=== PATIENT | male | born 1960 | race Caucasian/White ===

== ENCOUNTER → 2018-09-29 | Outpatient (CLI) | payer BC ==
--- NOTE | 2018-09-29 13:36 | Diagnostic Imaging Report ---
EXAM: Renal Ultrasound INDICATION: ^[id number] ^[id number] ^CHRONIC KIDNEY DZ COMPARISON: None TECHNIQUE: Transverse and longitudinal images of the kidneys and bladder were obtained. FINDINGS: Right Kidney: Size: 13.1 cm, right renal cortex 1.9 cm. Appearance: Normal echogenicity. Collecting system: No hydronephrosis Stones: None Cyst/Mass: None Left Kidney: Size: 12.0 cm, left renal cortex 2.1 cm. Appearance: Normal echogenicity. Collecting system: No hydronephrosis Stones: None Cyst/Mass: None Bladder: No focal lesions. No wall thickening. Prostate: 2.9 x 1.8 x 2.7 (estimated volume 7.4 mL). IMPRESSION: 1. Unremarkable renal ultrasound. Signed by: Dr. Lamine Early M.D. on 09/29/2018 1:33 PM
== END ==
LOC: US 12:08
PROVIDERS: ATTEND Urology
DX: N18.9 Chronic kidney disease, unspecified (principal)
CPT/HCPCS: 76770

== ENCOUNTER 2019-09-09 11:48 | Emergency (ER) | payer BC ==
[~2019-09-09] VITALS: Ht 182.9 cm; Wt 133.8 kg
--- OUTSIDE RECORDS SUMMARY | 2019-09-09 11:51 | XMS REPORT ---
Author Author [facility] Address Unknown Phone Unavailable Care Team Providers Care Olive Brine Tester Name Role Phone BISHNU CLINE Unavailable Unavailable Payers Payer Name Policy Type Policy Number Effective Date Expiration Date Problems This patient has no known problems. Allergies, Adverse Reactions, Alerts Allergy Name Allergy Type Status Severity Reaction(s) Onset Date Inactive Date Treating Clinician Comments No Known Allergies DA Active U 2014-12-07 00:00:00 Medications This patient has no known medications. Results Test Description Test Time Test Comments Text Results Atomic Results Result Comments - XR SHOULDER 1 V RT 2019-07-17 12:06:00 FAX: Noam Garcia I [phone] [place]: St: ADM FAX: Mike Cowrat MD [phone] Name: ASMITA SANTOS [facility]ly [facility] : 1960 Age/S: 59/M [address] [place] [address] Unit #: [id number] Loc: [address] [address] Phys: Mike Cowart MD Acct: [id number] Dis Date: Status: ADM IN PHONE #: [phone] Exam Date: 07/17/2019 1205 FAX #: [phone] Reason: PICC PLACEMENT EXAMS: CPT CODE: [id number] XR SHOULDER 1 V RT [id number] Clinical Indication: PICC placement. Opening talus fracture. Comparison: None available. Impression: Right shoulder, single view. Right upper extremity PICC is in place with catheter tip extending to the superior vena cava. SL: [id number] at 1206 Reported and signed by: Criselda Duval M.D. CC: Noam Gomez MD; Mike Cowart MD Technologist: Rachell Che RT(R) Trnscrd Date/Time/By: 07/17/2019 (8325) : By: [email or web address] Orig Print D/T: S: 07/17/2019 (6919) PAGE 1 Signed Report COMPREHENSIVE METABOLIC PANEL 2019-07-17 02:51:00 SODIUM (test code=NA) 140 mEq/L 134-147 POTASSIUM (test code=K) 4.2 mEq/L 3.4-5.0 CHLORIDE (test code=CL) 107 mEq/L 100-108 CARBON DIOXIDE (test code=CO2) 27 mEq/L 21-33 ANION GAP (test code=GAP) 10 0-20 GLUCOSE (test code=GLU) 93 mg/dL 70-110 BLOOD UREA NITROGEN (test code=BUN) 13 mg/dL 7-18 GLOMERULAR FILTRATION RATE (test code=GFR) 61.8 80-90 Units of measure=ml/min/1.73 m2 CREATININE (test code=CREAT) 1.2 mg/dL 0.6-1.3 TOTAL PROTEIN (test code=PROT) 6.8 g/dL 6.4-8.2 ALBUMIN (test code=ALB) 3.10 g/dL 3.4-5.0 CALCIUM (test code=CA) 9.0 mg/dL 8.0-10.5 BILIRUBIN TOTAL (test code=BILT) 0.5 MG/DL <1.5 SGOT/AST (test code=AST) 26 IUnit/L 15-37 SGPT/ALT (test code=ALT) 50 IUnit/L 15-65 ALKALINE PHOSPHATASE TOTAL (test code=ALKP) 130 IUnit/L 20-125 CBC W/AUTO [id number] 02:33:00* Test Item Value Reference Range Comments WHITE BLOOD CELL (test code=WBC) 7.85 x10 3/uL 4.5-11.0 RED BLOOD CELL (test code=RBC) 4.17 x10 6/uL 4.00-5.60 HEMOGLOBIN (test code=HGB) 12.2 g/dL 12.5-16.9 HEMATOCRIT (test code=HCT) 37.2 % 37.5-50.7 MEAN CELL VOLUME (test code=MCV) 89.2 fL 81.0-99.0 MEAN CELL HGB (test code=MCH) 29.3 pg 27.0-33.0 MEAN CELL HGB CONCETRATION (test code=MCHC) 32.8 g/dL 33.0-37.0 RED CELL DISTRIBUTION WIDTH CV (test code=RDW) 13.5 % 11.5-14.5 RED CELL DISTRIBUTION WIDTH SD (test code=RDW-SD) 44.1 fL 37.0-54.0 PLATELET COUNT (test code=PLT) 461 x10 3/uL 150-400 MEAN PLATELET VOLUME (test code=MPV) 8.9 fL 7.0-9.0 NEUTROPHIL % (test code=NT%) 53.9 % 56.0-77.0 IMMATURE GRANULOCYTE % (test code=IG%) 3.7 % 0.0-2.0 LYMPHOCYTE % (test code=LY%) 25.7 % 14.0-32.0 MONOCYTE % (test code=MO%) 12.0 % 4.8-9.0 EOSINOPHIL % (test code=EO%) 3.9 % 0.3-3.7 BASOPHIL % (test code=BA%) 0.8 % 0.0-2.0 NUCLEATED RBC % (test code=NRBC%) 0.0 % 0-0 NEUTROPHIL # (test code=NT#) 4.23 x10 3/uL 2.0-7.6 IMMATURE GRANULOCYTE # (test code=IG#) 0.29 x10 3/uL 0.00-0.03 LYMPHOCYTE # (test code=LY#) 2.02 x10 3/uL 1.0-3.8 MONOCYTE # (test code=MO#) 0.94 x10 3/uL 0.1-0.8 EOSINOPHIL # (test code=EO#) 0.31 x10 3/uL 0.0-0.2 BASOPHIL # (test code=BA#) 0.06 x10 3/uL 0.0-0.2 NUCLEATED RBC # (test code=NRBC#) 0.00 x10 3/uL 0.0-0.1 MANUAL DIFF REQUIRED (test code=MDIFF) NO COMPREHENSIVE METABOLIC [id number] 08:22:00* Test Item Value Reference Range Comments SODIUM (test code=NA) 138 mEq/L 134-147 POTASSIUM (test code=K) 4.2 mEq/L 3.4-5.0 CHLORIDE (test code=CL) 107 mEq/L 100-108 CARBON DIOXIDE (test code=CO2) 26 mEq/L 21-33 ANION GAP (test code=GAP) 9 0-20 GLUCOSE (test code=GLU) 88 mg/dL 70-110 BLOOD UREA NITROGEN (test code=BUN) 13 mg/dL 7-18 GLOMERULAR FILTRATION RATE (test code=GFR) 61.8 80-90 Units of measure=ml/min/1.73 m2 CREATININE (test code=CREAT) 1.2 mg/dL 0.6-1.3 TOTAL PROTEIN (test code=PROT) 6.2 g/dL 6.4-8.2 ALBUMIN (test code=ALB) 2.80 g/dL 3.4-5.0 CALCIUM (test code=CA) 8.6 mg/dL 8.0-10.5 BILIRUBIN TOTAL (test code=BILT) 0.4 MG/DL <1.5 SGOT/AST (test code=AST) 33 IUnit/L 15-37 SGPT/ALT (test code=ALT) 58 IUnit/L 15-65 ALKALINE PHOSPHATASE TOTAL (test code=ALKP) 143 IUnit/L 20-125 CBC W/AUTO [id number] 07:34:00* Test Item Value Reference Range Comments WHITE BLOOD CELL (test code=WBC) 6.95 x10 3/uL 4.5-11.0 RED BLOOD CELL (test code=RBC) 3.99 x10 6/uL 4.00-5.60 HEMOGLOBIN (test code=HGB) 11.6 g/dL 12.5-16.9 HEMATOCRIT (test code=HCT) 36.0 % 37.5-50.7 MEAN CELL VOLUME (test code=MCV) 90.2 fL 81.0-99.0 MEAN CELL HGB (test code=MCH) 29.1 pg 27.0-33.0 MEAN CELL HGB CONCETRATION (test code=MCHC) 32.2 g/dL 33.0-37.0 RED CELL DISTRIBUTION WIDTH CV (test code=RDW) 13.7 % 11.5-14.5 RED CELL DISTRIBUTION WIDTH SD (test code=RDW-SD) 46.0 fL 37.0-54.0 PLATELET COUNT (test code=PLT) 431 x10 3/uL 150-400 MEAN PLATELET VOLUME (test code=MPV) 9.2 fL 7.0-9.0 NEUTROPHIL % (test code=NT%) 55.2 % 56.0-77.0 IMMATURE GRANULOCYTE % (test code=IG%) 4.6 % 0.0-2.0 LYMPHOCYTE % (test code=LY%) 22.2 % 14.0-32.0 MONOCYTE % (test code=MO%) 12.1 % 4.8-9.0 EOSINOPHIL % (test code=EO%) 4.6 % 0.3-3.7 BASOPHIL % (test code=BA%) 1.3 % 0.0-2.0 NUCLEATED RBC % (test code=NRBC%) 0.0 % 0-0 NEUTROPHIL # (test code=NT#) 3.84 x10 3/uL 2.0-7.6 IMMATURE GRANULOCYTE # (test code=IG#) 0.32 x10 3/uL 0.00-0.03 LYMPHOCYTE # (test code=LY#) 1.54 x10 3/uL 1.0-3.8 MONOCYTE # (test code=MO#) 0.84 x10 3/uL 0.1-0.8 EOSINOPHIL # (test code=EO#) 0.32 x10 3/uL 0.0-0.2 BASOPHIL # (test code=BA#) 0.09 x10 3/uL 0.0-0.2 NUCLEATED RBC # (test code=NRBC#) 0.00 x10 3/uL 0.0-0.1 MANUAL DIFF REQUIRED (test code=MDIFF) NO - XR ANKLE 3 + V [id number] 19:08:00 FAX: Andres Torres DPM [phone] [place]: St: ADM FAX: Noam Garcia I [phone] Name: ASMITA SANTOS [facility] : 1960 Age/S: 59/M [address] [place] [address] Unit #: [id number] Loc: [place], [place] [address] Phys: Andres Templeton DPM Acct: [id number] Dis Date: Status: ADM IN PHONE #: [phone] Exam Date: 07/14/2019 1841 FAX #: [phone] Reason: left talar fracture/post fixation EXAMS: CPT CODE: [id number] XR ANKLE 3 + [place] [id number] Left ankle radiograph July 14, 2019 1833 hours. COMPARISON: July 04, 2019. CLINICAL HISTORY: Status post left talar fracture, post fixation Discussion: 3 views of the left ankle, AP lateral and oblique submitted. External fixation device and surg ical screws present over the tibia, talus and midfoot. Talar fracture is n oted with bahai of anatomic alignment. Extensive soft tissue swellin g and postoperative changes are noted. IMPRESSION: Status post talar fracture with external fixation device and multiple surgical screws present. Electronically Signed by Axel shah 07/14/2019 at 1908 Reported and signed by: Merary Juline M.D. CC: Andres Templeton DPM; Noam Gomez MD Technologist: RT Ayla(Faraz) Naresh rnschau Date/Time/By: 07/14/2019 (1907) : By: Eden Orig Print D/T: S: 07/14/2019 (1910) PAGE 1 Sign ed Report PROTHROMBIN [id number] 16:12:00* Test Item Value Reference Range Comments PROTHROMBIN TIME PATIENT (test code=PTP) 13.7 SECONDS 9.3-12.9 INTERNATIONAL NORMAL RATIO (test code=INR) 1.3 0.8-1.2 TARGET INR BY INDICATION Indication INR1. Prophylaxis of venous thrombosis 2.0 - 3.0 (orthopedic surgery), Prophylaxis of venous thrombosis (other than high-risk surgery), Treatment of Deep Vein Thrombosis/Pulmonary Embolism, Prevention of systemic embolism - Tissue heart valves, Acute Myocardial Infarction (to prevent systemic embolism), Valvular heart disease, Atrial Fibrillation, Bileaflet mechanical valve in aortic position.2. Mechanical prosthetic valves (high risk), 2.5 - 3.5 Presence of Lupus Anticoagulant or Antiphospholipid Antibodies, Prevention of systemic embolism - Acute Myocardial Infarction (to prevent recurrent infarct). COMPREHENSIVE METABOLIC [id number] 15:57:00* Test Item Value Reference Range Comments SODIUM (test code=NA) 139 mEq/L 134-147 POTASSIUM (test code=K) 4.1 mEq/L 3.4-5.0 CHLORIDE (test code=CL) 103 mEq/L 100-108 CARBON DIOXIDE (test code=CO2) 30 mEq/L 21-33 ANION GAP (test code=GAP) 10 0-20 GLUCOSE (test code=GLU) 89 mg/dL 70-110 BLOOD UREA NITROGEN (test code=BUN) 14 mg/dL 7-18 GLOMERULAR FILTRATION RATE (test code=GFR) 61.8 80-90 Units of measure=ml/min/1.73 m2 CREATININE (test code=CREAT) 1.2 mg/dL 0.6-1.3 TOTAL PROTEIN (test code=PROT) 6.6 g/dL 6.4-8.2 ALBUMIN (test code=ALB) 2.90 g/dL 3.4-5.0 CALCIUM (test code=CA) 8.9 mg/dL 8.0-10.5 BILIRUBIN TOTAL (test code=BILT) 0.4 MG/DL <1.5 SGOT/AST (test code=AST) 52 IUnit/L 15-37 SGPT/ALT (test code=ALT) 63 IUnit/L 15-65 ALKALINE PHOSPHATASE TOTAL (test code=ALKP) 143 IUnit/L 20-125 CBC W/AUTO [id number] 15:40:00* Test Item Value Reference Range Comments WHITE BLOOD CELL (test code=WBC) 7.90 x10 3/uL 4.5-11.0 RED BLOOD CELL (test code=RBC) 4.33 x10 6/uL 4.00-5.60 HEMOGLOBIN (test code=HGB) 12.7 g/dL 12.5-16.9 HEMATOCRIT (test code=HCT) 38.9 % 37.5-50.7 MEAN CELL VOLUME (test code=MCV) 89.8 fL 81.0-99.0 MEAN CELL HGB (test code=MCH) 29.3 pg 27.0-33.0 MEAN CELL HGB CONCETRATION (test code=MCHC) 32.6 g/dL 33.0-37.0 RED CELL DISTRIBUTION WIDTH CV (test code=RDW) 13.4 % 11.5-14.5 RED CELL DISTRIBUTION WIDTH SD (test code=RDW-SD) 44.4 fL 37.0-54.0 PLATELET COUNT (test code=PLT) 356 x10 3/uL 150-400 MEAN PLATELET VOLUME (test code=MPV) 9.2 fL 7.0-9.0 NEUTROPHIL % (test code=NT%) 63.7 % 56.0-77.0 IMMATURE GRANULOCYTE % (test code=IG%) 3.4 % 0.0-2.0 LYMPHOCYTE % (test code=LY%) 17.5 % 14.0-32.0 MONOCYTE % (test code=MO%) 10.8 % 4.8-9.0 EOSINOPHIL % (test code=EO%) 3.7 % 0.3-3.7 BASOPHIL % (test code=BA%) 0.9 % 0.0-2.0 NUCLEATED RBC % (test code=NRBC%) 0.0 % 0-0 NEUTROPHIL # (test code=NT#) 5.04 x10 3/uL 2.0-7.6 IMMATURE GRANULOCYTE # (test code=IG#) 0.27 x10 3/uL 0.00-0.03 LYMPHOCYTE # (test code=LY#) 1.38 x10 3/uL 1.0-3.8 MONOCYTE # (test code=MO#) 0.85 x10 3/uL 0.1-0.8 EOSINOPHIL # (test code=EO#) 0.29 x10 3/uL 0.0-0.2 BASOPHIL # (test code=BA#) 0.07 x10 3/uL 0.0-0.2 NUCLEATED RBC # (test code=NRBC#) 0.00 x10 3/uL 0.0-0.1 MANUAL DIFF REQUIRED (test code=MDIFF) NO BASIC METABOLIC [id number] 22:29:00* Test Item Value Reference Range Comments SODIUM (test code=NA) 138 mEq/L 134-147 POTASSIUM (test code=K) 3.8 mEq/L 3.4-5.0 CHLORIDE (test code=CL) 106 mEq/L 100-108 CARBON DIOXIDE (test code=CO2) 29 mEq/L 21-33 ANION GAP (test code=GAP) 7 0-20 GLUCOSE (test code=GLU) 105 mg/dL 70-110 BLOOD UREA NITROGEN (test code=BUN) 12 mg/dL 7-18 GLOMERULAR FILTRATION RATE (test code=GFR) 61.8 80-90 Units of measure=ml/min/1.73 m2 CREATININE (test code=CREAT) 1.2 mg/dL 0.6-1.3 CALCIUM (test code=CA) 8.6 mg/dL 8.0-10.5 CBC W/AUTO [id number] 22:28:00* Test Item Value Reference Range Comments WHITE BLOOD CELL (test code=WBC) 6.90 x10 3/uL 4.5-11.0 RED BLOOD CELL (test code=RBC) 4.03 x10 6/uL 4.00-5.60 HEMOGLOBIN (test code=HGB) 11.9 g/dL 12.5-16.9 HEMATOCRIT (test code=HCT) 36.0 % 37.5-50.7 MEAN CELL VOLUME (test code=MCV) 89.3 fL 81.0-99.0 MEAN CELL HGB (test code=MCH) 29.5 pg 27.0-33.0 MEAN CELL HGB CONCETRATION (test code=MCHC) 33.1 g/dL 33.0-37.0 RED CELL DISTRIBUTION WIDTH CV (test code=RDW) 13.5 % 11.5-14.5 RED CELL DISTRIBUTION WIDTH SD (test code=RDW-SD) 44.5 fL 37.0-54.0 PLATELET COUNT (test code=PLT) 286 x10 3/uL 150-400 MEAN PLATELET VOLUME (test code=MPV) 9.2 fL 7.0-9.0 NEUTROPHIL % (test code=NT%) 54.4 % 56.0-77.0 IMMATURE GRANULOCYTE % (test code=IG%) 2.3 % 0.0-2.0 LYMPHOCYTE % (test code=LY%) 19.6 % 14.0-32.0 MONOCYTE % (test code=MO%) 15.7 % 4.8-9.0 EOSINOPHIL % (test code=EO%) 7.0 % 0.3-3.7 BASOPHIL % (test code=BA%) 1.0 % 0.0-2.0 NUCLEATED RBC % (test code=NRBC%) 0.0 % 0-0 NEUTROPHIL # (test code=NT#) 3.76 x10 3/uL 2.0-7.6 IMMATURE GRANULOCYTE # (test code=IG#) 0.16 x10 3/uL 0.00-0.03 LYMPHOCYTE # (test code=LY#) 1.35 x10 3/uL 1.0-3.8 MONOCYTE # (test code=MO#) 1.08 x10 3/uL 0.1-0.8 EOSINOPHIL # (test code=EO#) 0.48 x10 3/uL 0.0-0.2 BASOPHIL # (test code=BA#) 0.07 x10 3/uL 0.0-0.2 NUCLEATED RBC # (test code=NRBC#) 0.00 x10 3/uL 0.0-0.1 MANUAL DIFF REQUIRED (test code=MDIFF) NO VANCOMYCIN [id number] 15:27:00* Test Item Value Reference Range Comments VANCOMYCIN TROUGH (test code=VANCT) 9.1 mcg/mL 10.0-20.0 10-15 mcg/mL - Cellulitis, Urinary Tract Infection. 15-20 mcg/mL - Bacteremia, Infective Endocarditis, Meningitis, Osteomyelitis, Pneumonia, Severe Skin/Soft-Tissue Infection, Spinal Abscess. COMMENTS: PLEASE HOLD VANCOMYCIN DOSE IF LEVEL >21, CALL PHARMACY FOR DOSEBASIC METABOLIC [id number] 07:29:00* Test Item Value Reference Range Comments SODIUM (test code=NA) 139 mEq/L 134-147 POTASSIUM (test code=K) 3.2 mEq/L 3.4-5.0 CHLORIDE (test code=CL) 106 mEq/L 100-108 CARBON DIOXIDE (test code=CO2) 27 mEq/L 21-33 ANION GAP (test code=GAP) 9 0-20 GLUCOSE (test code=GLU) 92 mg/dL 70-110 BLOOD UREA NITROGEN (test code=BUN) 11 mg/dL 7-18 GLOMERULAR FILTRATION RATE (test code=GFR) 76.2 80-90 Units of measure=ml/min/1.73 m2 CREATININE (test code=CREAT) 1.0 mg/dL 0.6-1.3 CALCIUM (test code=CA) 8.2 mg/dL 8.0-10.5 CBC W/AUTO [id number] 07:28:00* Test Item Value Reference Range Comments WHITE BLOOD CELL (test code=WBC) 5.37 x10 3/uL 4.5-11.0 RED BLOOD CELL (test code=RBC) 3.79 x10 6/uL 4.00-5.60 HEMOGLOBIN (test code=HGB) 11.3 g/dL 12.5-16.9 HEMATOCRIT (test code=HCT) 33.2 % 37.5-50.7 MEAN CELL VOLUME (test code=MCV) 87.6 fL 81.0-99.0 MEAN CELL HGB (test code=MCH) 29.8 pg 27.0-33.0 MEAN CELL HGB CONCETRATION (test code=MCHC) 34.0 g/dL 33.0-37.0 RED CELL DISTRIBUTION WIDTH CV (test code=RDW) 13.5 % 11.5-14.5 RED CELL DISTRIBUTION WIDTH SD (test code=RDW-SD) 44.2 fL 37.0-54.0 PLATELET COUNT (test code=PLT) 199 x10 3/uL 150-400 MEAN PLATELET VOLUME (test code=MPV) 9.2 fL 7.0-9.0 NEUTROPHIL % (test code=NT%) 60.0 % 56.0-77.0 IMMATURE GRANULOCYTE % (test code=IG%) 1.1 % 0.0-2.0 LYMPHOCYTE % (test code=LY%) 16.4 % 14.0-32.0 MONOCYTE % (test code=MO%) 16.8 % 4.8-9.0 EOSINOPHIL % (test code=EO%) 5.0 % 0.3-3.7 BASOPHIL % (test code=BA%) 0.7 % 0.0-2.0 NUCLEATED RBC % (test code=NRBC%) 0.0 % 0-0 NEUTROPHIL # (test code=NT#) 3.22 x10 3/uL 2.0-7.6 IMMATURE GRANULOCYTE # (test code=IG#) 0.06 x10 3/uL 0.00-0.03 LYMPHOCYTE # (test code=LY#) 0.88 x10 3/uL 1.0-3.8 MONOCYTE # (test code=MO#) 0.90 x10 3/uL 0.1-0.8 EOSINOPHIL # (test code=EO#) 0.27 x10 3/uL 0.0-0.2 BASOPHIL # (test code=BA#) 0.04 x10 3/uL 0.0-0.2 NUCLEATED RBC # (test code=NRBC#) 0.00 x10 3/uL 0.0-0.1 MANUAL DIFF REQUIRED (test code=MDIFF) NO BASIC METABOLIC [id number] 07:22:00* Test Item Value Reference Range Comments SODIUM (test code=NA) 139 mEq/L 134-147 POTASSIUM (test code=K) 3.2 mEq/L 3.4-5.0 CHLORIDE (test code=CL) 106 mEq/L 100-108 CARBON DIOXIDE (test code=CO2) 27 mEq/L 21-33 ANION GAP (test code=GAP) 9 0-20 GLUCOSE (test code=GLU) 92 mg/dL 70-110 BLOOD UREA NITROGEN (test code=BUN) 11 mg/dL 7-18 GLOMERULAR FILTRATION RATE (test code=GFR) 80-90 CREATININE (test code=CREAT) mg/dL 0.6-1.3 CALCIUM (test code=CA) 8.2 mg/dL 8.0-10.5 BASIC METABOLIC [id number] 15:40:00* Test Item Value Reference Range Comments SODIUM (test code=NA) 138 mEq/L 134-147 POTASSIUM (test code=K) 3.5 mEq/L 3.4-5.0 CHLORIDE (test code=CL) 105 mEq/L 100-108 CARBON DIOXIDE (test code=CO2) 32 mEq/L 21-33 ANION GAP (test code=GAP) 5 0-20 GLUCOSE (test code=GLU) 104 mg/dL 70-110 BLOOD UREA NITROGEN (test code=BUN) 14 mg/dL 7-18 GLOMERULAR FILTRATION RATE (test code=GFR) 68.3 80-90 Units of measure=ml/min/1.73 m2 CREATININE (test code=CREAT) 1.1 mg/dL 0.6-1.3 CALCIUM (test code=CA) 8.5 mg/dL 8.0-10.5 CBC W/AUTO [id number] 15:33:00* Test Item Value Reference Range Comments WHITE BLOOD CELL (test code=WBC) 6.66 x10 3/uL 4.5-11.0 RED BLOOD CELL (test code=RBC) 3.98 x10 6/uL 4.00-5.60 HEMOGLOBIN (test code=HGB) 11.9 g/dL 12.5-16.9 HEMATOCRIT (test code=HCT) 36.0 % 37.5-50.7 MEAN CELL VOLUME (test code=MCV) 90.5 fL 81.0-99.0 MEAN CELL HGB (test code=MCH) 29.9 pg 27.0-33.0 MEAN CELL HGB CONCETRATION (test code=MCHC) 33.1 g/dL 33.0-37.0 RED CELL DISTRIBUTION WIDTH CV (test code=RDW) 13.5 % 11.5-14.5 RED CELL DISTRIBUTION WIDTH SD (test code=RDW-SD) 45.6 fL 37.0-54.0 PLATELET COUNT (test code=PLT) 210 x10 3/uL 150-400 MEAN PLATELET VOLUME (test code=MPV) 9.0 fL 7.0-9.0 NEUTROPHIL % (test code=NT%) 64.8 % 56.0-77.0 IMMATURE GRANULOCYTE % (test code=IG%) 0.6 % 0.0-2.0 LYMPHOCYTE % (test code=LY%) 12.9 % 14.0-32.0 MONOCYTE % (test code=MO%) 17.6 % 4.8-9.0 EOSINOPHIL % (test code=EO%) 3.3 % 0.3-3.7 BASOPHIL % (test code=BA%) 0.8 % 0.0-2.0 NUCLEATED RBC % (test code=NRBC%) 0.0 % 0-0 NEUTROPHIL # (test code=NT#) 4.32 x10 3/uL 2.0-7.6 IMMATURE GRANULOCYTE # (test code=IG#) 0.04 x10 3/uL 0.00-0.03 LYMPHOCYTE # (test code=LY#) 0.86 x10 3/uL 1.0-3.8 MONOCYTE # (test code=MO#) 1.17 x10 3/uL 0.1-0.8 EOSINOPHIL # (test code=EO#) 0.22 x10 3/uL 0.0-0.2 BASOPHIL # (test code=BA#) 0.05 x10 3/uL 0.0-0.2 NUCLEATED RBC # (test code=NRBC#) 0.00 x10 3/uL 0.0-0.1 MANUAL DIFF REQUIRED (test code=MDIFF) NO - XR KNEE 1 OR 2 V [id number] 12:53:00 FAX: Noam Garcia I [phone] [place]: St: ADM FAX: Godfrey Nickerson MD [phone] Name: ASMITA SANTOS [facility]ly [facility] : 1960 Age/S: 59/M [address] [place] [address] Unit #: [id number] Loc: [address] [place] [address] Phys: Godfrey Augustin MD Acct: [id number] Dis Date: Status: ADM IN PHONE #: [phone] Exam Date: 07/08/2019 0853 FAX #: [phone] Reason: PAIN EXAMS: CPT CODE: [id number] XR KNEE 1 [place] 2 [place] [address] RIGHT KNEE, 2 VIEWS: HISTORY: Pain C OMPARISON EXAMS: Left knee series of 07/05/2019. FINDINGS: A smal l joint effusion is identified in the suprapatellar bursa. Moderate osteoa rthritic changes are noted, most pronounced in the medial compartment wher e there is joint space narrowing and osteophyte formation. Similar changes are present at the patellofemoral compartment. No evidence of acute fract ure or dislocation. An unusual, dense band of cortical thick ening is identified in the proximal third of the right tibia. This is symm etrical with the appearance of the left tibia and appears benign, and gis scientist sailaja. IMPRESSION: 1. Right knee joint effusion. 2. Mild to moderate osteoarthritic changes in the right knee. 3. Benign, symmetrical periosteal cortical thickening in the proximal tibi a. 4. Mild generalized soft tissue edema about the right knee. SL:01 at 1253 Reported and signed by: Angelito Daniels M.D. CC: Noam Gomez MD; Godfrey Augustin Technologist: RT Daina(Faraz) Trnscrd Date/Time/By: 07/09/2019 (8254) : By: [facility].SABA/[facility].LIAME Orig Print D/T: S: 07/09/2019 (2298) PAGE 1 Signed Report UA RFLX MICR CULT IF [id number] 23:31:00* Test Item Value Reference Range Comments UA COLOR (test code=COLU) STRAW YEL/STRAW UA APPEARANCE (test code=APPU) CLEAR CLEAR UA GLUCOSE DIPSTICK (test code=DGLUU) NEGATIVE NEGATIVE UA BILIRUBIN DIPSTICK (test code=BILU) NEGATIVE NEGATIVE UA KETONE DIPSTICK (test code=KETU) TRACE NEGATIVE UA SPECIFIC GRAVITY (test code=SGU) 1.005 1.005-1.030 UA BLOOD DIPSTICK (test code=ARLEN) 2+ NEGATIVE UA PH DIPSTICK (test code=ERIKA) 6.0 5.0-7.0 UA PROTEIN DIPSTICK (test code=PROU) NEGATIVE NEGATIVE UA UROBILINIOGEN DIPSTICK (test code=URO) 0.2 mg/dL 0.2-1.0 UA NITRITE DIPSTICK (test code=CANELO) NEGATIVE NEGATIVE UA LEUKOCYTE ESTERASE DIPSTICK (test code=LEUU) NEGATIVE NEGATIVE UA WBC (test code=WBCU) 0-3 WBC/HPF 0-3 UA RBC (test code=RBCU) 0-3 RBC/HPF 0-3 UA WBC NO REFLEX (test code=WBCUCL) 0-3 WBC/HPF 0-3 UA BACTERIA (test code=BACU) NONE SEEN /HPF NONE SEEN UA SQUAMOUS CELLS (test code=SQU) NONE SEEN /HPF NONE SEEN UA MUCUS (test code=MUCU) TRACE /LPF NONE SEEN Indication for culture: Temperature > 100.4 FSpecimen Description: INDWELLING CATH (TAPIA)Cath Status: Under 72 hoursBASIC METABOLIC PANEL 2019-07-08 22:47:00* Test Item Value Reference Range Comments SODIUM (test code=NA) 136 mEq/L 134-147 POTASSIUM (test code=K) 3.1 mEq/L 3.4-5.0 CHLORIDE (test code=CL) 101 mEq/L 100-108 CARBON DIOXIDE (test code=CO2) 31 mEq/L 21-33 ANION GAP (test code=GAP) 7 0-20 GLUCOSE (test code=GLU) 101 mg/dL 70-110 BLOOD UREA NITROGEN (test code=BUN) 15 mg/dL 7-18 GLOMERULAR FILTRATION RATE (test code=GFR) 61.8 80-90 Units of measure=ml/min/1.73 m2 CREATININE (test code=CREAT) 1.2 mg/dL 0.6-1.3 CALCIUM (test code=CA) 8.6 mg/dL 8.0-10.5 PROTHROMBIN [id number] 22:39:00* Test Item Value Reference Range Comments PROTHROMBIN TIME PATIENT (test code=PTP) 14.6 SECONDS 9.3-12.9 INTERNATIONAL NORMAL RATIO (test code=INR) 1.3 0.8-1.2 TARGET INR BY INDICATION Indication INR1. Prophylaxis of venous thrombosis 2.0 - 3.0 (orthopedic surgery), Prophylaxis of venous thrombosis (other than high-risk surgery), Treatment of Deep Vein Thrombosis/Pulmonary Embolism, Prevention of systemic embolism - Tissue heart valves, Acute Myocardial Infarction (to prevent systemic embolism), Valvular heart disease, Atrial Fibrillation, Bileaflet mechanical valve in aortic position.2. Mechanical prosthetic valves (high risk), 2.5 - 3.5 Presence of Lupus Anticoagulant or Antiphospholipid Antibodies, Prevention of systemic embolism - Acute Myocardial Infarction (to prevent recurrent infarct). CBC W/AUTO [id number] 22:32:00* Test Item Value Reference Range Comments WHITE BLOOD CELL (test code=WBC) 9.05 x10 3/uL 4.5-11.0 RED BLOOD CELL (test code=RBC) 3.80 x10 6/uL 4.00-5.60 HEMOGLOBIN (test code=HGB) 11.4 g/dL 12.5-16.9 HEMATOCRIT (test code=HCT) 33.6 % 37.5-50.7 MEAN CELL VOLUME (test code=MCV) 88.4 fL 81.0-99.0 MEAN CELL HGB (test code=MCH) 30.0 pg 27.0-33.0 MEAN CELL HGB CONCETRATION (test code=MCHC) 33.9 g/dL 33.0-37.0 RED CELL DISTRIBUTION WIDTH CV (test code=RDW) 13.5 % 11.5-14.5 RED CELL DISTRIBUTION WIDTH SD (test code=RDW-SD) 44.0 fL 37.0-54.0 PLATELET COUNT (test code=PLT) 218 x10 3/uL 150-400 MEAN PLATELET VOLUME (test code=MPV) 9.3 fL 7.0-9.0 NEUTROPHIL % (test code=NT%) 72.9 % 56.0-77.0 IMMATURE GRANULOCYTE % (test code=IG%) 0.8 % 0.0-2.0 LYMPHOCYTE % (test code=LY%) 9.8 % 14.0-32.0 MONOCYTE % (test code=MO%) 13.4 % 4.8-9.0 EOSINOPHIL % (test code=EO%) 2.5 % 0.3-3.7 BASOPHIL % (test code=BA%) 0.6 % 0.0-2.0 NUCLEATED RBC % (test code=NRBC%) 0.0 % 0-0 NEUTROPHIL # (test code=NT#) 6.60 x10 3/uL 2.0-7.6 IMMATURE GRANULOCYTE # (test code=IG#) 0.07 x10 3/uL 0.00-0.03 LYMPHOCYTE # (test code=LY#) 0.89 x10 3/uL 1.0-3.8 MONOCYTE # (test code=MO#) 1.21 x10 3/uL 0.1-0.8 EOSINOPHIL # (test code=EO#) 0.23 x10 3/uL 0.0-0.2 BASOPHIL # (test code=BA#) 0.05 x10 3/uL 0.0-0.2 NUCLEATED RBC # (test code=NRBC#) 0.00 x10 3/uL 0.0-0.1 MANUAL DIFF REQUIRED (test code=MDIFF) NO - DUP VEIN [id number] 16:27:00 Name: ASMITA SANTOS [facility] : 1960 Age/S: 59 / M [address] [place] [address] Blvd Unit #: [id number] Loc: [place] [address] Phys: Liborio Crouch PA-C Acct: [id number] Dis Date: Status: ADM IN PHONE #: [phone] Exam Date: 07/07/2019 1336 FAX #: [phone] Reason: RLE edema EXAMS: CPT CODE: [id number] DUP VEIN UNI/LTD [id number] PROCEDURE: UNILATERAL LOWER EXTREMITY VENOUS ULTRASOUND INDICATION: 59-year-old male with right lower extremity edema COMPARISON: None. TECHNIQUE: Sonographic evaluation of the right lower extremity veins was performed using high resolution B-mode, pulse and color Doppler imaging. FINDINGS: The common femoral, femoral, popliteal and visualized calf veins are patent. Normal venous waveforms. The saphenofemoral junction is unremarkable. IMPRESSION: 1. No deep venous thrombosis identified in the right lower extremity. SL: [id number] at 1627 Reported and signed by: Cynthia Srivastava M.D. CC: Liborio Crouch; Noam Gomez MD Technologist: Arnaldo Patel RDMS (AB) (OB) Trnscb Date/Time: 07/07/2019 (1627) [email or web address] Orig Print D/T: S: 07/07/2019 (1631) Probe: PAGE 1 Signed Report - XR FLUOROSCOPY 0-60 [id number] 19:35:00 FAX: Andres Torres DPM [phone] [place]: St: ADM FAX: Stephy Gomez MD [phone] Name: ASMITA SANTOS [facility] [place] : 1960 Age/S: 59/M [address] [place] [address] Unit #: [id number] Loc: [place] [address] Phys: Andres Templeton DPM Acct: [id number] Dis Date: Status: ADM IN PHONE #: [phone] Exam Date: 07/05/20191923 FAX #: [phone] Reason: LT ANKLE/TALUS EXTERNAL FIXATION EXAMS: CPT CODE: [id number] XR FLUOROSCOPY 0-60 MIN 15521 Intraprocedural fluoroscopy was provided by the Department of Radiology. Any images obtained were interpreted by the Surgeon intraop eratively. Total reported active fluoroscopy time was approximately 74.1 seconds. Dose (Air Kerma): 2.14 mGy SL: ER-H at 193 Reported and signed by: Filemon Quiroga M.D. CC: Andres Templeton DPM; Stephy Gomez MD Technologist: Gala Alexander RT(R) Trnscrd Date/Time/By: 07/05/2019 (1934) : By: [email or web address] Orig Print D/T: S: 07/05/2019 (1937) PAGE 1 Signed Report RENAL FUNCTION [id number] 08:18:00* Test Item Value Reference Range Comments SODIUM (test code=NA) 140 mEq/L 134-147 POTASSIUM (test code=K) 3.7 mEq/L 3.4-5.0 CHLORIDE (test code=CL) 107 mEq/L 100-108 CARBON DIOXIDE (test code=CO2) 30 mEq/L 21-33 ANION GAP (test code=GAP) 7 0-20 GLUCOSE (test code=GLU) 81 mg/dL 70-110 BLOOD UREA NITROGEN (test code=BUN) 16 mg/dL 7-18 GLOMERULAR FILTRATION RATE (test code=GFR) 56.3 80-90 Units of measure=ml/min/1.73 m2 CREATININE (test code=CREAT) 1.3 mg/dL 0.6-1.3 ALBUMIN (test code=ALB) 3.20 g/dL 3.4-5.0 CALCIUM (test code=CA) 8.4 mg/dL 8.0-10.5 PHOSPHOROUS (test code=PHOS) 3.6 MG/DL 2.5-4.9 [id number] 08:18:00* Test Item Value Reference Range Comments MAGNESIUM (test code=MAG) 2.00 mg/dL 1.8-2.4 CBC W/AUTO [id number] 08:13:00* Test Item Value Reference Range Comments WHITE BLOOD CELL (test code=WBC) 8.86 x10 3/uL 4.5-11.0 RED BLOOD CELL (test code=RBC) 4.55 x10 6/uL 4.00-5.60 HEMOGLOBIN (test code=HGB) 13.4 g/dL 12.5-16.9 HEMATOCRIT (test code=HCT) 41.6 % 37.5-50.7 MEAN CELL VOLUME (test code=MCV) 91.4 fL 81.0-99.0 MEAN CELL HGB (test code=MCH) 29.5 pg 27.0-33.0 MEAN CELL HGB CONCETRATION (test code=MCHC) 32.2 g/dL 33.0-37.0 RED CELL DISTRIBUTION WIDTH CV (test code=RDW) 13.6 % 11.5-14.5 RED CELL DISTRIBUTION WIDTH SD (test code=RDW-SD) 45.6 fL 37.0-54.0 PLATELET COUNT (test code=PLT) 171 x10 3/uL 150-400 MEAN PLATELET VOLUME (test code=MPV) 9.6 fL 7.0-9.0 NEUTROPHIL % (test code=NT%) 70.4 % 56.0-77.0 IMMATURE GRANULOCYTE % (test code=IG%) 0.8 % 0.0-2.0 LYMPHOCYTE % (test code=LY%) 15.5 % 14.0-32.0 MONOCYTE % (test code=MO%) 11.3 % 4.8-9.0 EOSINOPHIL % (test code=EO%) 1.5 % 0.3-3.7 BASOPHIL % (test code=BA%) 0.5 % 0.0-2.0 NUCLEATED RBC % (test code=NRBC%) 0.0 % 0-0 NEUTROPHIL # (test code=NT#) 6.25 x10 3/uL 2.0-7.6 IMMATURE GRANULOCYTE # (test code=IG#) 0.07 x10 3/uL 0.00-0.03 LYMPHOCYTE # (test code=LY#) 1.37 x10 3/uL 1.0-3.8 MONOCYTE # (test code=MO#) 1.00 x10 3/uL 0.1-0.8 EOSINOPHIL # (test code=EO#) 0.13 x10 3/uL 0.0-0.2 BASOPHIL # (test code=BA#) 0.04 x10 3/uL 0.0-0.2 NUCLEATED RBC # (test code=NRBC#) 0.00 x10 3/uL 0.0-0.1 MANUAL DIFF REQUIRED (test code=MDIFF) NO - XR KNEE 1 OR 2 V [id number] 00:44:00 FAX: Stephy Gomez MD [phone] [place]: St: [facility] FAX: Gasper Ellison MD [phone] Name: WESLY SANTOSSANDRINE Ruth [facility] : 1960 Age/S: 59/M [address] [place] [address] Unit #: [id number] Loc: [place] [address] Phys: Stephy Gomez MD Acct: [id number] Dis Date: Status: ADM IN PHONE #: [phone] Exam Date: 07/05/201931 FAX #: [phone] Reason: possible left patellar fx EXAMS: CPT CODE: [id number] XR KNEE 1 OR 2 [place] [address] Exam: - XR KNEE 2 V LT History: Possible left pa tellar fracture. Comparison: Tibia-fibula 07/04/2019 Findings: No fracture, dislocation or aggressive bony abnormality. No patellar fracture is identified. Mild tricompartment degenerative c hanges are noted. Subchondral cyst formation along the patellar articular surface is suggested. A small suprapatellar joint effusion may be present. If clinical concern persists further evaluation wi MRI can be obtained. Impression: No a cute bony findings.A small suprapatellar joint effusion may be present. Mild tricompartment degenerative changes Electron ically Signed by Axel Woods on 07/05/2019 at 0044 Reported and signed by: Yennifer Woods M.D. CC: Stephy Julio; Gasper Dupont MD Technologist: Amauri Camp, RT(R); Rachell johnson RT(R) Trnazrd Date/Time/By: 07/05/2019 (0044) : By: BrigitteU [email or web address] Orig Print D/T: S: 07/05/2019 (0047) PAGE 1 Signed Report - XR ANKLE 3 + V [id number] 23:49:00 FAX: Stephy Gomez MD [phone] [place]: St: ADM FAX: Gasper Ellison MD [phone] Name: ASMITA SANTOS [facility] : 1960 Age/S: 59/M [address] [place] [address] Unit #: [id number] Loc: ALBERT DurandSTANISLAW [address] Phys: Dallin Manzano MD Acct: [id number] Dis Date: Status: ADM IN PHONE #: [phone] Exam Date: 07/04/2019 0002 FAX #: [phone] Reason: POST REDUCTION EXAMS: CPT CODE: [id number] XR ANKLE 3 + [place] [address] Left ankle, 3 views dated 07/04/2019. HISTORY: Open talus fracture. Post reduction. AP, lateral and oblique views of the left ankle are correlated with the prior left tibia/fibula series on 07/04/2019. An acute comminuted fracture of the talus is again identified with disruption of the subtalar joint. The degree of fracture fragment displacement has improved when compared to the preceding study. No acute fractures of the distal left tibia or fibula are identified. The talus appears normally located. IMPRESSION: 1. Acute comminuted and displaced fracture of the talus with disruption of the subtalar joint. The degree of fracture fragment displacement has improved when compared to the left tibia/fibula series from 07/04/2019. SL: 131 at 4176 Reported and signed by: Christopher Yin M.D. CC: Stephy Gomez MD; Gasper Dupont MD Technologist: Sherrie Soto RT(R); Rachell Che RT(R) Trnscrd Date/Time/By: 07/04/2019 (9439) : By: Joslyn Orig Print D/T: S: 07/05/2019 (0003) PAGE 1 Signed Report COMPREHENSIVE METABOLIC [id number] 23:24:00* Test Item Value Reference Range Comments SODIUM (test code=NA) 140 mEq/L 134-147 POTASSIUM (test code=K) 3.8 mEq/L 3.4-5.0 CHLORIDE (test code=CL) 106 mEq/L 100-108 CARBON DIOXIDE (test code=CO2) 32 mEq/L 21-33 ANION GAP (test code=GAP) 6 0-20 GLUCOSE (test code=GLU) 108 mg/dL 70-110 BLOOD UREA NITROGEN (test code=BUN) 17 mg/dL 7-18 GLOMERULAR FILTRATION RATE (test code=GFR) 47.7 80-90 Units of measure=ml/min/1.73 m2 CREATININE (test code=CREAT) 1.5 mg/dL 0.6-1.3 TOTAL PROTEIN (test code=PROT) 6.6 g/dL 6.4-8.2 ALBUMIN (test code=ALB) 3.70 g/dL 3.4-5.0 CALCIUM (test code=CA) 9.5 mg/dL 8.0-10.5 BILIRUBIN TOTAL (test code=BILT) 0.4 MG/DL <1.5 SGOT/AST (test code=AST) 22 IUnit/L 15-37 SGPT/ALT (test code=ALT) 34 IUnit/L 15-65 ALKALINE PHOSPHATASE TOTAL (test code=ALKP) 45 IUnit/L 20-125 COMPREHENSIVE METABOLIC [id number] 23:19:00* Test Item Value Reference Range Comments SODIUM (test code=NA) 140 mEq/L 134-147 POTASSIUM (test code=K) 3.8 mEq/L 3.4-5.0 CHLORIDE (test code=CL) 106 mEq/L 100-108 CARBON DIOXIDE (test code=CO2) 32 mEq/L 21-33 ANION GAP (test code=GAP) 6 0-20 GLUCOSE (test code=GLU) 108 mg/dL 70-110 BLOOD UREA NITROGEN (test code=BUN) 17 mg/dL 7-18 GLOMERULAR FILTRATION RATE (test code=GFR) 80-90 CREATININE (test code=CREAT) mg/dL 0.6-1.3 TOTAL PROTEIN (test code=PROT) g/dL 6.4-8.2 ALBUMIN (test code=ALB) g/dL 3.4-5.0 CALCIUM (test code=CA) 9.5 mg/dL 8.0-10.5 BILIRUBIN TOTAL (test code=BILT) MG/DL <1.5 SGOT/AST (test code=AST) IUnit/L 15-37 SGPT/ALT (test code=ALT) IUnit/L 15-65 ALKALINE PHOSPHATASE TOTAL (test code=ALKP) IUnit/L 20-125 PROTHROMBIN [id number] 23:15:00* Test Item Value Reference Range Comments PROTHROMBIN TIME PATIENT (test code=PTP) 11.4 SECONDS 9.3-12.9 INTERNATIONAL NORMAL RATIO (test code=INR) 1.0 0.8-1.2 TARGET INR BY INDICATION Indication INR1. Prophylaxis of venous thrombosis 2.0 - 3.0 (orthopedic surgery), Prophylaxis of venous thrombosis (other than high-risk surgery), Treatment of Deep Vein Thrombosis/Pulmonary Embolism, Prevention of systemic embolism - Tissue heart valves, Acute Myocardial Infarction (to prevent systemic embolism), Valvular heart disease, Atrial Fibrillation, Bileaflet mechanical valve in aortic position.2. Mechanical prosthetic valves (high risk), 2.5 - 3.5 Presence of Lupus Anticoagulant or Antiphospholipid Antibodies, Prevention of systemic embolism - Acute Myocardial Infarction (to prevent recurrent infarct). THROMBOPLASTIN TIME [id number] 23:15:00* Test Item Value Reference Range Comments THROMBOPLASTIN TIME PARTIAL (test code=PTT) 31.1 Seconds 25.0-39.5 Therapeutic Range: 50.4 - 88.3 Seconds Effective 01/31/2019 CBC W/AUTO [id number] 23:10:00* Test Item Value Reference Range Comments WHITE BLOOD CELL (test code=WBC) 7.98 x10 3/uL 4.5-11.0 RED BLOOD CELL (test code=RBC) 4.80 x10 6/uL 4.00-5.60 HEMOGLOBIN (test code=HGB) 14.4 g/dL 12.5-16.9 HEMATOCRIT (test code=HCT) 42.3 % 37.5-50.7 MEAN CELL VOLUME (test code=MCV) 88.1 fL 81.0-99.0 MEAN CELL HGB (test code=MCH) 30.0 pg 27.0-33.0 MEAN CELL HGB CONCETRATION (test code=MCHC) 34.0 g/dL 33.0-37.0 RED CELL DISTRIBUTION WIDTH CV (test code=RDW) 13.5 % 11.5-14.5 RED CELL DISTRIBUTION WIDTH SD (test code=RDW-SD) 43.7 fL 37.0-54.0 PLATELET COUNT (test code=PLT) 202 x10 3/uL 150-400 MEAN PLATELET VOLUME (test code=MPV) 9.5 fL 7.0-9.0 NEUTROPHIL % (test code=NT%) 62.0 % 56.0-77.0 IMMATURE GRANULOCYTE % (test code=IG%) 0.8 % 0.0-2.0 LYMPHOCYTE % (test code=LY%) 21.1 % 14.0-32.0 MONOCYTE % (test code=MO%) 12.7 % 4.8-9.0 EOSINOPHIL % (test code=EO%) 2.9 % 0.3-3.7 BASOPHIL % (test code=BA%) 0.5 % 0.0-2.0 NUCLEATED RBC % (test code=NRBC%) 0.0 % 0-0 NEUTROPHIL # (test code=NT#) 4.96 x10 3/uL 2.0-7.6 IMMATURE GRANULOCYTE # (test code=IG#) 0.06 x10 3/uL 0.00-0.03 LYMPHOCYTE # (test code=LY#) 1.68 x10 3/uL 1.0-3.8 MONOCYTE # (test code=MO#) 1.01 x10 3/uL 0.1-0.8 EOSINOPHIL # (test code=EO#) 0.23 x10 3/uL 0.0-0.2 BASOPHIL # (test code=BA#) 0.04 x10 3/uL 0.0-0.2 NUCLEATED RBC # (test code=NRBC#) 0.00 x10 3/uL 0.0-0.1 MANUAL DIFF REQUIRED (test code=MDIFF) NO - XR TIBIA/FIBULA 2 V [id number] 23:00:00 FAX: Gasper Ellison MD [phone] [place]: St: PRE Name: ASMITA DALTON [facility] : [birth year] Age/S: 59/M [address] [place] [address] Unit #: [id number] Loc: ANURAG DurandSTANISLAW [address] Phys: Dallin Manzano MD Acct: [id number] Dis Date: Status: PRE ER PHONE #: [phone] Exam Date: 07/04/20192248 FAX #: [phone] Reason: OPEN FX EXAMS: CPT CODE: [id number] XR TIBIA/FIBULA 2 [place] [address] Clinical Indication: OPEN FX; Comparison: None FINDINGS: The 3 views of the left ankle show a complete fracture through the talus with displacement of the distal fragment. Moderate soft tissue swelling with soft tissue gas is present. A nondisplaced left patellar fracture is suspected on the later al view. The left knee joint is intact. IMPRESSION: 1. Acute fracture through the talus with a displaced distal fragment of the left ankle. 2. Left patellar fracture. SL: ALEXI at 2300 Reported and si gned by: Salvador Tillman M.D. CC: Gasper Dupont MD Technologist: Amauri Camp RT(R); Sherrie Soto RT(R) Trnscrd Date/Time/By: 07/04/2019 (4382) : By: [email or web address] Orig Print D/T: S: 07/04/2019 (8582) PAGE 1 Signed Report - XR CHEST 1 [id number] 22:56:00 FAX: Gasper Ellison MD [phone] [place]: St: PRE Name: ASMITA DALTON [facility] : [birth year] Age/S: 59/M [address] [place] [address] Unit #: [id number] Loc: [place] [address] Phys: Dallin Manzano MD Acct: [id number] Dis Date: Status: PRE ER PHONE #: [phone] Exam Date: 07/04/20192248 FAX #: [phone] Reason: OPEN FX EXAMS: CPT CODE: [id number] XR CHEST 1 V 68349 Chest, single view dated 07/04/2019. HISTORY: Left tib-fib fracture. Comparison is made to a prior study dated 12/07/2014. The heart is magnified by portable AP technique and appears upper normal in size. 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 The mediastinum is otherwise unremarkable. The lungs appear clear. The pu lmonary vasculature is normal in caliber. No acute pleural space ab normalities are detected. IMPRESSION: 1. No radiographi c evidence of acute cardiopulmonary disease. SL: 131 at 5376 Reported and signed by: Christopher Yin M.D. CC: Gasper Dupont MD Technologist: Amauri Camp RT(R); RT Daina(R) Trnscrd Date/Time/By: 07/04/2019 (2255) : By: Becka RUDOLPH Orig Print D/T: S: 07/04/2019 (0318) SHRUTI HOFFMAN 1 Signed Report US RENAL RETROPERITONEAL [id number] 13:27:00 [place] [address] Patient Name: ASMITA SANTOS MR #: [id number] : 1960 Age/Sex: 58/M Req #: [id number] Adm Physician: Ordered by: BISHNU CLINE MD Report #: [id number] Location: US Room/Bed: Procedure: [id number] US/US RENAL RETROPERITONEAL COMP Exam Date: 09/29/18 Exam Time: 123 REPORT STATUS: Signed EXAM: Renal Ultrasound INDICATION: [id number] CHRONIC KI DNEY DZ COMPARISON: None TECHNIQUE: Transverse and longitudinal images of the kidneys and bladder were obtained. FINDINGS: Right Kidne y: Size: 13.1 cm, right renal cortex 1.9 cm. Appearance: Normal echogenicit y. Collecting system: No hydronephrosis Stones: None Cyst/Mass: None Left Kidney: Size: 12.0 cm, left renal cortex 2.1 cm. Appearance: Normal echogenicity. Collecting system: No hydronephrosis Stones: None Cyst/Mas s: None Bladder: No focal lesions. No wall thickening. Prostate: 2.9 x 1.8 x 2.7 (estimated volume 7.4 mL). IMPRESSION: 1. Unremarkable renal ultrasound. Signed by: Dr. Lamine Salazar M.D. on 09/29/2018 1:33 PM Dictated By: LAMINE SALAZAR MD [id number] Transcribed By: EHSAN on 09/29/18 4555 COPY TO : BISHNU CLINE MD
[2019-09-09 14:16] LABS: BASOPHILS % 0.4 % (0.0-1.0); EOSINOPHILS # (AUTO) 0.3 (0.0-0.4); EOSINOPHILS % 3.4 % (0.0-6.0); HEMATOCRIT 34.5 % (38.2-49.6); HEMOGLOBIN 11.3 g/dL (14.0-18.0); LYMPHOCYTES # (AUTO) 1.7 (1.0-3.2); LYMPHOCYTES % 22.1 % (18.0-39.1); MEAN CORPUSCULAR HEMOGLOBIN 28.8 pg (28-32); MEAN CORPUSCULAR HGB CONC 32.8 g/dL (31-35); MEAN CORPUSCULAR VOLUME 87.8 fL (81-99); MONOCYTES # (AUTO) 1.1 (0.2-0.8); MONOCYTES % 14.8 % (4.4-11.3); NEUTROPHILS # (AUTO) 4.5 (2.1-6.9); NEUTROPHILS % 58.6 % (38.7-80.0); PLATELET COUNT 236 x10e3/uL (140-360); RED BLOOD COUNT 3.93 x10e6/uL (4.3-5.7); RED CELL DISTRIBUTION WIDTH 13.7 % (11.7-14.4)
[2019-09-09 14:33] LABS: INR 0.98; PROTHROMBIN TIME 13.5 seconds (11.9-14.5)
[2019-09-09 14:34] LABS: PARTIAL THROMBOPLASTIN TIME 36.8 seconds (23.8-35.5)
[2019-09-09 14:40] LABS: ALANINE AMINOTRANSFERASE 18 IU/L (0-55); ALBUMIN 3.5 g/dL (3.5-5.0); ALBUMIN/GLOBULIN RATIO 0.9 (0.8-2.0); ALKALINE PHOSPHATASE 65 IU/L (40-150); ANION GAP 14.5 mmol/L (8-16); BLOOD UREA NITROGEN 14 mg/dL (7-26); BUN/CREATININE RATIO 12 (6-25); CARBON DIOXIDE 30 mmol/L (22-29); CHLORIDE 98 mmol/L (98-107); CREATININE, SERUM 1.14 mg/dL (0.72-1.25); EST GLOMERULAR FILTRATION RATE > 60 ML/MIN (60-); GLUCOSE 93 mg/dL (74-118); POTASSIUM 4.5 mmol/L (3.5-5.1); SODIUM 138 mmol/L (136-145)
[2019-09-09] MEDS: PIPER-TAZ 3.375 GM 50 ML IV ONE (15:00)
[2019-09-09] MEDS: SODIUM CHLORIDE 0.9% 1000ML 1,000 ML IV STA (15:00)
[2019-09-09 15:04] LABS: BILIRUBIN,URINE NEGATIVE (NEGATIVE); CLARITY,URINE CLEAR (CLEAR); COLOR,URINE YELLOW (YELLOW); KETONES,URINE NEGATIVE (NEGATIVE); LEUKOCYTE ESTERASE ,URINE MODERATE (NEGATIVE); NITRITE,URINE POSITIVE (NEGATIVE); PROTEIN,URINE DIPSTICK NEGATIVE (NEGATIVE); URINE UROBILINOGEN 0.2 mg/dL (0.2 - 1)
--- NOTE | 2019-09-09 15:24 | Diagnostic Imaging Report ---
EXAMINATION: CHEST 2 VIEWS INDICATION: ^fever COMPARISON: None FINDINGS: PA and lateral views TUBES and LINES: None. LUNGS: Lungs are well inflated. There is no evidence of pneumonia or pulmonary edema. PLEURA: No pleural effusion or pneumothorax. HEART AND MEDIASTINUM: The cardiomediastinal silhouette is unremarkable. BONES AND SOFT TISSUES: No acute osseous lesion. Soft tissues are unremarkable. UPPER ABDOMEN: No free air under the diaphragm. IMPRESSION: No acute thoracic abnormality. Signed by: John Todd MD on 09/09/2019 3:21 PM
[2019-09-09 15:27] LABS: BACTERIA,URINE MODERATE /HPF; WBC,URINE (MAN) >50 /HPF (0-5)
[2019-09-09 15:36] LABS: INFLUENZAE A&B ANTIGEN (RAPID) NEGATIVE (NEGATIVE)
[2019-09-09 15:38] LABS: STREPTOCOCCUS GRP A ANTIGEN NEGATIVE (NEGATIVE)
[2019-09-09 17:16] VITALS: BP 110/59
[2019-09-13] MEDS ORDERED: CEFUROXIME500 MG PO (15:18)
[2019-09-13] MEDS ORDERED: ALLEGRA ALLERG180 MG PO (15:18)
[2019-09-13] MEDS ORDERED: METHOCARBAMOL750 MG PO (15:18)
[2019-09-13] MEDS ORDERED: METOPROLOL SUCC50 MG PO (15:18)
[2019-09-13] MEDS ORDERED: OXYCODONE ER PO (15:18)
[2019-09-13] MEDS ORDERED: GABAPENTIN400 MG PO (15:18)
[2019-09-13] MEDS ORDERED: IRBESARTAN150 MG PO (15:18)
[2019-09-13] MEDS ORDERED: PLAVIX75 MG PO (15:20)
[2019-09-13] MEDS ORDERED: SYNTHROID125 MCG PO (15:20)
[2019-09-13] MEDS ORDERED: VITAMIN D31000 UNIT PO (15:20)
[2019-09-13] MEDS ORDERED: ASPIR-LOW81 MG PO (15:20)
[2019-09-13] MEDS ORDERED: PEPCID20 MG PO (15:20)
[2019-09-13] MEDS ORDERED: FLOMAX0.4 MG PO (15:20)
== END 2019-09-09 17:30 | disposition home or self-care (01) ==
LOC: ER 11:51
DX: R50.9 Fever, unspecified (principal); N30.91 Cystitis, unspecified with hematuria; I10 Essential (primary) hypertension; E78.5 Hyperlipidemia, unspecified; K21.9 Gastro-esophageal reflux disease without esophagitis; Z86.73 Personal history of transient ischemic attack (TIA), and cerebral infarction without residual deficits
CPT/HCPCS: 36415; 71046; 80053; 81001; 83518; 83605; 85025; 85610; 85730; 87040; 87070; 87071; 87086; 87186; 87205; 87400; 99284; J2543; J7030